=== PATIENT | female | born 1975 ===

== ENCOUNTER 2023-01-23 05:20 | Day surgery (SDC) | payer OTHER ==
[~2023-01-23] VITALS: Ht 162.6 cm; Wt 95.3 kg
[~2023-01-23 05:20] MED LIST: CRESTOR5 MG PO; HYDRODIURIL12.5 MG PO
[2023-01-23] MEDS ORDERED: NAPR500T14 PO (11:43)
[2023-01-23] MEDS ORDERED: MORGIDOX100 MG PO (11:43)
== END 2023-01-23 14:55 | disposition home or self-care (01) ==
LOC: CIR.AMB 05:20
PROVIDERS: ATTEND Obstetrics & Gynecology
DX: N92.0 Excessive and frequent menstruation with regular cycle (principal); N84.0 Polyp of corpus uteri; D25.0 Submucous leiomyoma of uterus; Z20.822 Contact with and (suspected) exposure to COVID-19; I10 Essential (primary) hypertension; E78.00 Pure hypercholesterolemia, unspecified; Z86.16 Personal history of COVID-19; F12.90 Cannabis use, unspecified, uncomplicated